=== PATIENT | male | born 1980 | race Caucasian/White ===

== ENCOUNTER 2017-10-13 12:05 | Emergency (ER) | payer OTHER ==
[~2017-10-13] VITALS: Ht 177.8 cm; Wt 85.0 kg
[2017-10-13 12:11] VITALS: TEMP 36.8; Ht 177.8 cm; Wt 85.0 kg
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
[2017-10-13] MEDS ORDERED: ACETAMINOPHEN 500 MG TAB PO STA (13:37)
[2017-10-13] MEDS ORDERED: OXYC1TAB3 PO (13:48)
[2017-10-13 13:56] VITALS: BP 131/72; PULSE 74; O2SAT 99
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
--- NOTE | 2017-10-17 09:13 | EDITING REQUIRED CODING QUERY ---
CODING QUERY To promote full compliance with coding requirements relating to patient care, provider participation is requested in all cases of gluing crew leader uncertainty. Please assist us with the question(s) below: Coding Question(s): FINAL IMPRESSION LISTS LEFT KNEE PAIN, THROUGHOUT NOTE, IT IS STATED THAT PATIENT HAS A RIGHT KNEE INJURY/PAIN. PLEASE CLARIFY THE LATERALITY FOR THIS INJURY. Physician's Response(s): Final impression should be Right Knee pain, not left Thank you Puja Henriquez Principal Diagnosis: "_that condition established after study, to be chiefly responsible for occasioning the admission of the patient to the hospital for care." Co-Existing Principal Diagnosis: "_when two or more diagnoses equally meet the criteria for principal diagnosis as determined by the circumstances of admission, diagnostic work up, and/or therapy provided, and the Alphabetic Index, Tabular List, or another coding guideline does not provide sequencing direction, any one of the diagnoses may be sequenced first." "When the physician has documented what appears to be a current diagnosis in the body of the record, but has not included the diagnosis in the final diagnostic statement, the physician should be asked whether the diagnosis should be added." (Source [facility] 2 QTR90. p3-4)
== END 2017-10-13 13:56 | disposition home or self-care (01) ==
LOC: C.EDB 12:07 → MERGE 12:07 → C.EDD 13:56
DX: M25.561 Pain in right knee (principal); V18.3XXA Person boarding or alighting a pedal cycle injured in noncollision transport accident, initial encounter; Y99.0 Civilian activity done for income or pay